=== PATIENT | female | born 1945 | race Two or more races ===

== ENCOUNTER 2020-12-03 17:47 | Emergency (ER) | payer MEDICARE ==
[~2020-12-03] VITALS: Ht 157.5 cm; Wt 68.0 kg
[2020-12-03] MEDS ORDERED: AMMONIA 0.33 ML INHALANT IN ONE (17:54)
[2020-12-03 18:35] LABS: Basophils # (auto) 0.1 10 ^3/uL (0-0.2); Basophils % (auto) 0.9 % (0.0-2.0); Eosinophils # (auto) 0.1 10 ^3/uL (0-0.8); Eosinophils % (auto) 2.4 % (0.0-7.0); Hematocrit 41.3 % (36.0-46.0); Hemoglobin 13.7 g/dL (12.2-16.2); Lymphocytes # (auto) 1.8 10 ^3/uL (0.4-5.4); Lymphocytes % (auto) 29.8 % (10.0-50.0); Mean Corpuscular Hemoglobin 29.9 pg (28.0-32.0); Mean Corpuscular Hgb Conc. 33.3 g/dL (32.0-36.0); Mean Corpuscular Volume 89.7 fL (80.0-100.0); Monocytes # (auto) 0.5 10 ^3/uL (0-1.3); Monocytes % (auto) 9.2 % (0.0-12.0); Neutrophils # (auto) 3.4 10 ^3/uL (1.6-8.6); Neutrophils % (auto) 57.7 % (37.0-80.0); Nucleated Red Blood Cells % 0.1 %; Red Cell Distribution Width 14.1 % (11.8-14.3); White Blood Cell 5.9 10^3/uL (4.4-10.8)
[2020-12-03 18:41] LABS: Albumin 3.2 g/dL (3.4-5.0); Anion Gap 4 (5-15); Blood Alcohol < 3.0 mg/dL (0-5); Blood Urea Nitrogen 24 mg/dL (7-18); Calcium 9.7 mg/dL (8.5-10.1); Carbon Dioxide 25 mmol/L (21-32); Chloride 113 mmol/L (98-107); Glucose 103 mg/dL (74-106); Magnesium 2.7 mg/dL (1.6-2.6); Potassium 4.1 mmol/L (3.5-5.1); Sodium 142 mmol/L (136-145)
[2020-12-03 18:46] LABS: Alanine Aminotransferase 30 U/L (13-56); Alkaline Phosphatase 65 U/L (45-117); Aspartate Aminotransferase 21 U/L (15-37); BUN/Creatinine Ratio 14.8; Bilirubin, Total 0.5 mg/dL (0.2-1.0); GFR African American 40 mL/min; GFR Non-African American 33 mL/min; Total Protein 6.7 g/dL (6.4-8.2)
[2020-12-03 21:22] LABS: Urine Bacteria NONE SEEN /hpf (None Seen); Urine WBC 7 /hpf (0 - 5)
[2020-12-03 21:26] LABS: Urine Blood Negative /uL (Negative)
[2020-12-03 21:29] LABS: Alcohol, Urine < 3.0 mg/dL (0-10); Amphetamine Screen, Urine NEGATIVE (NEGATIVE); Barbiturate Scree,Urine NEGATIVE (NEGATIVE); Benzodiazephine Screen, Urine NEGATIVE (NEGATIVE); Cannabinoid Screen, Urine POSITIVE (NEGATIVE); Cocaine Screen, Urine NEGATIVE (NEGATIVE); Opiate Scree,Urine NEGATIVE (NEGATIVE); Phencyclidine Screen, Urine NEGATIVE (NEGATIVE)
[2020-12-03] MEDS ORDERED: cefTRIAXone 1GM/50ML D5W 50 ML IV ONE (21:45)
[2020-12-03] MEDS ORDERED: SODIUM CHLORIDE 0.9% 1,000 ML IV ONE (21:45)
[2020-12-03 22:30] VITALS: BP 156/86
== END 2020-12-03 23:17 | disposition home or self-care (01) ==
LOC: ER 17:47 → EDBD 17:47 → ER 23:17
DX: R41.0 Disorientation, unspecified (principal); N39.0 Urinary tract infection, site not specified
CPT/HCPCS: 36415; 70450; 71045; 80053; 80307; 80320; 81001; 83735; 84484; 85025; 93005; 96365; 99285; J0696; J7030

== ENCOUNTER 2020-12-27 03:19 | Emergency (ER) | payer MEDICARE ==
[~2020-12-27] VITALS: Ht 167.6 cm; Wt 74.8 kg
[2020-12-27] MEDS ORDERED: cloNIDine HCL 0.1 MG TAB PO ONE (04:30)
[2020-12-27] MEDS ORDERED: HALOPERIDOL LACTATE 5 MG/ML INJ VIAL IM ONE (04:30)
[2020-12-27 07:52] VITALS: BP 149/79
[2021-01-04] MEDS ORDERED: LEVO750T8 PO (11:23)
[2021-01-04] MEDS ORDERED: MET25T PO (11:23)
== END 2020-12-27 09:03 | disposition home or self-care (01) ==
LOC: ER 03:19 → EDBD 03:19 → ER 09:03
DX: F03.90 Unspecified dementia, unspecified severity, without behavioral disturbance, psychotic disturbance, mood disturbance, and anxiety (principal); I10 Essential (primary) hypertension; R51.9 Headache, unspecified
CPT/HCPCS: 70450

== ENCOUNTER 2020-12-28 12:34 | Emergency (ER) | payer MEDICARE ==
[~2020-12-28] VITALS: Ht 157.5 cm; Wt 86.2 kg
[2020-12-28] MEDS ORDERED: SODIUM CHLORIDE 0.9% 1,000 ML IVB ONE (12:45)
[2020-12-28 13:41] LABS: Basophils # (auto) 0 10 ^3/uL (0-0.2); Basophils % (auto) 0.5 % (0.0-2.0); Eosinophils # (auto) 0 10 ^3/uL (0-0.8); Eosinophils % (auto) 0.1 % (0.0-7.0); Hematocrit 36.3 % (36.0-46.0); Hemoglobin 12.5 g/dL (12.2-16.2); Lymphocytes # (auto) 0.7 10 ^3/uL (0.4-5.4); Lymphocytes % (auto) 7.9 % (10.0-50.0); Mean Corpuscular Hemoglobin 30.6 pg (28.0-32.0); Mean Corpuscular Hgb Conc. 34.3 g/dL (32.0-36.0); Mean Corpuscular Volume 89.2 fL (80.0-100.0); Monocytes # (auto) 0.7 10 ^3/uL (0-1.3); Monocytes % (auto) 7.3 % (0.0-12.0); Neutrophils # (auto) 7.6 10 ^3/uL (1.6-8.6); Neutrophils % (auto) 84.2 % (37.0-80.0); Red Blood Cells 4.08 10^6/uL (4.0-5.20); White Blood Cell 9.1 10^3/uL (4.4-10.8)
[2020-12-28 14:07] LABS: Albumin 3.3 g/dL (3.4-5.0); Calcium 8.9 mg/dL (8.5-10.1); Potassium 4.4 mmol/L (3.5-5.1)
[2020-12-28 14:09] LABS: BUN/Creatinine Ratio 11.6
[2020-12-28 14:11] LABS: Total Protein 6.1 g/dL (6.4-8.2)
[2020-12-28 16:44] VITALS: BP 143/57
[2021-01-04] MEDS ORDERED: MET25T PO (11:23)
[2021-01-04] MEDS ORDERED: LEVO750T8 PO (11:23)
== END 2020-12-28 18:36 | disposition home or self-care (01) ==
LOC: EDBD 12:34 → ER 12:34
DX: R41.0 Disorientation, unspecified (principal); R55 Syncope and collapse; I10 Essential (primary) hypertension
CPT/HCPCS: 36415; 80053; 85025; 93005

== ENCOUNTER 2020-12-30 00:06 | Inpatient (IN) | payer MEDICARE ==
[~2020-12-30] VITALS: Ht 162.6 cm; Wt 73.7 kg
[2020-12-30 01:15] LABS: Basophils # (auto) 0.1 10 ^3/uL (0-0.2); Basophils % (auto) 1.1 % (0.0-2.0); Eosinophils # (auto) 0.1 10 ^3/uL (0-0.8); Eosinophils % (auto) 2.2 % (0.0-7.0); Hematocrit 36.7 % (36.0-46.0); Hemoglobin 12.6 g/dL (12.2-16.2); Lymphocytes # (auto) 1.8 10 ^3/uL (0.4-5.4); Lymphocytes % (auto) 29.2 % (10.0-50.0); Mean Corpuscular Hemoglobin 31.2 pg (28.0-32.0); Mean Corpuscular Hgb Conc. 34.4 g/dL (32.0-36.0); Mean Corpuscular Volume 90.6 fL (80.0-100.0); Monocytes # (auto) 0.6 10 ^3/uL (0-1.3); Monocytes % (auto) 8.9 % (0.0-12.0); Neutrophils # (auto) 3.6 10 ^3/uL (1.6-8.6); Neutrophils % (auto) 58.6 % (37.0-80.0); Nucleated Red Blood Cells % 0.1 %; Red Blood Cells 4.05 10^6/uL (4.0-5.20); White Blood Cell 6.2 10^3/uL (4.4-10.8)
[2020-12-30] MEDS ORDERED: CLON0.1T PO (01:29)
[2020-12-30 01:37] LABS: Albumin 3.3 g/dL (3.4-5.0); Calcium 8.8 mg/dL (8.5-10.1); Potassium 3.2 mmol/L (3.5-5.1)
[2020-12-30 01:45] LABS: Bilirubin, Total 0.7 mg/dL (0.2-1.0); Total Protein 6.7 g/dL (6.4-8.2)
[2020-12-30 02:00] LABS: Urine Bacteria FEW /hpf (None Seen); Urine Blood Negative /uL (Negative); Urine Specific Gravity 1.007 (1.001-1.035); Urine WBC 4 /hpf (0 - 5)
[2020-12-30] MEDS ORDERED: HEPARIN SODIUM (PORCINE) 5000 UNITS/ML 1ML VIAL IV ONE (02:00)
[2020-12-30] MEDS ORDERED: CLOPIDOGREL 300 MG TAB PO ONE (02:00)
[2020-12-30] MEDS ORDERED: HEPARIN DRIP/D5W 100UNITS/ML 250 ML IV SCH (02:00)
[2020-12-30] MEDS ORDERED: ASPirin 81 mg TAB PO ONE (02:00)
[2020-12-30 02:28] LABS: INR 0.98 (0.9-1.15); Partial Thromboplastin Time 23.9 sec (23.6-33.0)
[2020-12-30] MEDS ORDERED: NITROGLYCERIN 0.4 MG SL TAB SL PRN (06:45)
[2020-12-30] MEDS ORDERED: ONDANSETRON HCL 4 MG/2 ML VIAL IV PRN (06:45)
[2020-12-30] MEDS ORDERED: MORPHINE SULFATE 4 MG/ML SYR/VIAL IV PRN (06:45)
[2020-12-30] MEDS ORDERED: DOCUSATE SOD 100 MG CAP PO PRN (06:45)
[2020-12-30] MEDS ORDERED: hydrALAZINE HCL 20 MG/ML VL IV PRN (06:45)
[2020-12-30] MEDS ORDERED: HYDROcodone-ACET 5/325MG TAB PO PRN (06:45)
[2020-12-30] MEDS ORDERED: MORPHINE SULFATE INJECTION 2 MG/ML SYRG IV PRN (06:45)
[2020-12-30] MEDS ORDERED: ACETAMINOPHEN 325 MG TAB PO PRN (06:45)
[2020-12-30 07:14] LABS: Basophils # (auto) 0.1 10 ^3/uL (0-0.2); Basophils % (auto) 0.9 % (0.0-2.0); Eosinophils # (auto) 0.1 10 ^3/uL (0-0.8); Eosinophils % (auto) 2.1 % (0.0-7.0); Hematocrit 34.7 % (36.0-46.0); Lymphocytes # (auto) 1.6 10 ^3/uL (0.4-5.4); Lymphocytes % (auto) 24.6 % (10.0-50.0); Mean Corpuscular Hgb Conc. 34.5 g/dL (32.0-36.0); Mean Corpuscular Volume 89.9 fL (80.0-100.0); Monocytes # (auto) 0.5 10 ^3/uL (0-1.3); Monocytes % (auto) 8.5 % (0.0-12.0); Neutrophils # (auto) 4.1 10 ^3/uL (1.6-8.6); Neutrophils % (auto) 63.9 % (37.0-80.0); Red Blood Cells 3.86 10^6/uL (4.0-5.20); White Blood Cell 6.4 10^3/uL (4.4-10.8)
[2020-12-30] MEDS ORDERED: POTASSIUM CHL 20 Meq TABLET PO ONE (07:15)
[2020-12-30 07:29] LABS: BUN/Creatinine Ratio 14.1; Calcium 8.5 mg/dL (8.5-10.1); Potassium 3.3 mmol/L (3.5-5.1)
[2020-12-30 07:33] LABS: Bilirubin, Total 0.8 mg/dL (0.2-1.0); Total Protein 6.3 g/dL (6.4-8.2)
[2020-12-30] MEDS ORDERED: amLODIPine BESYLATE 5 MG TAB PO SCH (10:00)
[2020-12-30] MEDS ORDERED: METOPROLOL SUCCINATE XL 50 MG TAB PO ONE (12:45)
[2020-12-30] MEDS ORDERED: AZITHROMYCIN 500MG/ 250ML 250 ML IV ONE (12:45)
[2020-12-30] MEDS ORDERED: POTASSIUM CHL 20MEQ/100ML 100 ML IV ONE (12:45)
[2020-12-30] MEDS ORDERED: BENAZEPRIL HCL 10 MG TAB PO ONE (12:45)
[2020-12-30] MEDS ORDERED: cefTRIAXone 1GM/50ML D5W 50 ML IV ONE (12:45)
[2020-12-30] MEDS ORDERED: NIFEdipine ER 30 MG TAB PO ONE (12:45)
[2020-12-30] MEDS ORDERED: FAMOTIDINE (10MG/ML) 2ML VL IV ONE (13:00)
[2020-12-30] MEDS ORDERED: hydrALAZINE HCL 25 MG TAB PO SCH (14:00)
[2020-12-30] MEDS ORDERED: IPRATROPIUM BROM 0.5 MG/2.5ML INH SOL NEB SCH (14:00)
[2020-12-30 14:21] VITALS: BP 123/66
[2020-12-30] MEDS ORDERED: DONEPEZIL HYDROCHLORIDE 5 MG TAB PO SCH (22:00)
[2020-12-30] MEDS: ENOXAPARIN SOD 80 MG/0.8ML SYRINGE SC SCH (23:51)
[2020-12-30] MEDS: ATORVASTATIN 20 MG TAB PO SCH (23:51)
[2020-12-31 07:39] LABS: Basophils # (auto) 0.1 10 ^3/uL (0-0.2); Basophils % (auto) 0.9 % (0.0-2.0); Eosinophils # (auto) 0.1 10 ^3/uL (0-0.8); Eosinophils % (auto) 1.7 % (0.0-7.0); Hematocrit 35.5 % (36.0-46.0); Hemoglobin 12.3 g/dL (12.2-16.2); Lymphocytes # (auto) 1.2 10 ^3/uL (0.4-5.4); Lymphocytes % (auto) 21.6 % (10.0-50.0); Mean Corpuscular Hemoglobin 31.4 pg (28.0-32.0); Mean Corpuscular Hgb Conc. 34.7 g/dL (32.0-36.0); Mean Corpuscular Volume 90.3 fL (80.0-100.0); Monocytes # (auto) 0.5 10 ^3/uL (0-1.3); Monocytes % (auto) 8.5 % (0.0-12.0); Neutrophils # (auto) 3.8 10 ^3/uL (1.6-8.6); Neutrophils % (auto) 67.3 % (37.0-80.0); Nucleated Red Blood Cells % 0.1 %; Red Blood Cells 3.93 10^6/uL (4.0-5.20); Red Cell Distribution Width 14.3 % (11.8-14.3); White Blood Cell 5.6 10^3/uL (4.4-10.8)
[2020-12-31] MEDS: BENAZEPRIL HCL 10 MG TAB PO SCH (07:52)
[2020-12-31] MEDS: cefTRIAXone 1GM/50ML D5W 50 ML IV SCH (07:52)
[2020-12-31] MEDS: ASPirin 81 mg TAB PO SCH (07:52)
[2020-12-31] MEDS: NIFEdipine ER 30 MG TAB PO SCH (07:53)
[2020-12-31] MEDS: MEMANTINE HCL 5 MG TAB PO SCH (07:53)
[2020-12-31 07:54] LABS: INR 1.02 (0.9-1.15); Partial Thromboplastin Time 29.9 sec (23.6-33.0)
[2020-12-31] MEDS: METOPROLOL SUCCINATE XL 50 MG TAB PO SCH (07:54)
[2020-12-31] MEDS: ENOXAPARIN SOD 80 MG/0.8ML SYRINGE SC SCH (07:55)
[2020-12-31 08:05] LABS: Albumin 3.2 g/dL (3.4-5.0); BUN/Creatinine Ratio 13.2; Calcium 8.8 mg/dL (8.5-10.1); Magnesium 2.3 mg/dL (1.6-2.6); Uric Acid 3.2 mg/dL (2.6-6.0)
[2020-12-31 08:09] LABS: Bilirubin, Total 0.5 mg/dL (0.2-1.0); Phosphorus 2.7 mg/dL (2.5-4.90); Total Protein 6.7 g/dL (6.4-8.2)
[2020-12-31] MEDS: FAMOTIDINE (10MG/ML) 2ML VL IV SCH (08:09)
[2020-12-31] MEDS: AZITHROMYCIN 500MG/ 250ML 250 ML IV SCH (10:00)
[2020-12-31 19:55] VITALS: BP 107/56
[2020-12-31 21:13] VITALS: BP 107/56
[2020-12-31] MEDS ORDERED: OMEG100078 PO (21:32)
[2020-12-31] MEDS ORDERED: ALEN35TA18 PO (21:32)
[2020-12-31] MEDS ORDERED: ROSU20TA14 PO (21:32)
[2020-12-31] MEDS ORDERED: LOSA-39 PO (21:32)
[2020-12-31] MEDS ORDERED: DONE5TAB80 PO (21:32)
[2020-12-31] MEDS ORDERED: MEMA28CA15 PO (21:32)
[2020-12-31] MEDS ORDERED: EZET10TA22 PO (21:32)
[2020-12-31] MEDS ORDERED: CHOL20007 OR (21:32)
[2020-12-31] MEDS ORDERED: METO-158 PO (21:32)
[2020-12-31 22:00] VITALS: BP 107/56
[2020-12-31] MEDS: ATORVASTATIN 20 MG TAB PO SCH (22:34)
[2021-01-01 05:28] VITALS: BP 118/62
[2021-01-01 05:31] LABS: Basophils # (auto) 0.1 10 ^3/uL (0-0.2); Eosinophils # (auto) 0.1 10 ^3/uL (0-0.8); Eosinophils % (auto) 2.2 % (0.0-7.0); Hemoglobin 13.3 g/dL (12.2-16.2); Lymphocytes # (auto) 2.1 10 ^3/uL (0.4-5.4); Lymphocytes % (auto) 32.3 % (10.0-50.0); Mean Corpuscular Hemoglobin 30.2 pg (28.0-32.0); Mean Corpuscular Hgb Conc. 33.2 g/dL (32.0-36.0); Mean Corpuscular Volume 90.9 fL (80.0-100.0); Monocytes # (auto) 0.5 10 ^3/uL (0-1.3); Monocytes % (auto) 7.1 % (0.0-12.0); Neutrophils # (auto) 3.8 10 ^3/uL (1.6-8.6); Neutrophils % (auto) 57.4 % (37.0-80.0); Nucleated Red Blood Cells % 0.1 %; Red Cell Distribution Width 14.4 % (11.8-14.3); White Blood Cell 6.6 10^3/uL (4.4-10.8)
[2021-01-01 05:48] LABS: INR 0.99 (0.9-1.15); Partial Thromboplastin Time 24.3 sec (23.6-33.0)
[2021-01-01 06:03] LABS: Albumin 3.5 g/dL (3.4-5.0)
[2021-01-01 06:07] LABS: BUN/Creatinine Ratio 16.2; Magnesium 2.7 mg/dL (1.6-2.6)
[2021-01-01 06:09] LABS: Bilirubin, Total 0.7 mg/dL (0.2-1.0); Phosphorus 3.7 mg/dL (2.5-4.90); Total Protein 6.9 g/dL (6.4-8.2)
[2021-01-01 08:10] VITALS: BP 106/57
[2021-01-01] MEDS: cefTRIAXone 1GM/50ML D5W 50 ML IV SCH (08:10)
[2021-01-01 08:30] VITALS: BP 102/57
[2021-01-01] MEDS: AZITHROMYCIN 500MG/ 250ML 250 ML IV SCH (09:30)
[2021-01-01] MEDS: FAMOTIDINE (10MG/ML) 2ML VL IV SCH (09:30)
[2021-01-01] MEDS: ASPirin 81 mg TAB PO SCH (09:31)
[2021-01-01] MEDS: MEMANTINE HCL 5 MG TAB PO SCH (09:31)
[2021-01-01] MEDS: ENOXAPARIN SOD 40 MG/0.4 ML SYRINGE SC SCH (09:34)
[2021-01-01] MEDS: METOPROLOL SUCCINATE XL 50 MG TAB PO SCH (09:35)
[2021-01-01] MEDS: BENAZEPRIL HCL 10 MG TAB PO SCH (09:36)
[2021-01-01] MEDS: NIFEdipine ER 30 MG TAB PO SCH (09:36)
[2021-01-01 12:30] VITALS: BP 101/69
[2021-01-01] MEDS: SODIUM CHLORIDE 0.9% 1,000 ML IV SCH (14:00)
[2021-01-01 17:00] VITALS: BP_SYST 100; BP_SYST 101; BP_SYST 98; BP_DIAS 59; BP_DIAS 67
[2021-01-01 20:30] VITALS: BP 105/64
[2021-01-01] MEDS: ATORVASTATIN 20 MG TAB PO SCH (21:50)
[2021-01-02] VITALS (8 sets, daily range): BP systolic 118–135; BP diastolic 60–81
[2021-01-02 07:07] LABS: Potassium 4.2 mmol/L (3.5-5.1)
[2021-01-02 07:13] LABS: BUN/Creatinine Ratio 22.3; Calcium 8.4 mg/dL (8.5-10.1); Magnesium 2.5 mg/dL (1.6-2.6)
[2021-01-02] MEDS: SODIUM CHLORIDE 0.9% 1,000 ML IV SCH ×2 (08:06→23:05)
[2021-01-02] MEDS: cefTRIAXone 1GM/50ML D5W 50 ML IV SCH (08:07)
[2021-01-02] MEDS: ASPirin 81 mg TAB PO SCH (09:31)
[2021-01-02] MEDS: ENOXAPARIN SOD 40 MG/0.4 ML SYRINGE SC SCH (09:31)
[2021-01-02] MEDS: METOPROLOL SUCCINATE XL 50 MG TAB PO SCH (09:32)
[2021-01-02] MEDS: MEMANTINE HCL 5 MG TAB PO SCH (09:33)
[2021-01-02] MEDS: AZITHROMYCIN 500MG/ 250ML 250 ML IV SCH (09:34)
[2021-01-02] MEDS ORDERED: GADOTERATE MEG 10 MMOL/20ml INJ (0.5MMOL/ml) IV ONE (11:31)
[2021-01-02] MEDS: ATORVASTATIN 20 MG TAB PO SCH (21:52)
[2021-01-02] MEDS: METOPROLOL TARTRATE 25 MG TAB PO SCH (21:52)
[2021-01-03 05:00] VITALS: BP_SYST 121; BP_SYST 123; BP_DIAS 72; BP_DIAS 74
[2021-01-03 05:49] LABS: INR 0.94 (0.9-1.15); Partial Thromboplastin Time 24.9 sec (23.6-33.0)
[2021-01-03 06:03] LABS: Calcium 8.8 mg/dL (8.5-10.1); Potassium 4.4 mmol/L (3.5-5.1)
[2021-01-03 06:05] LABS: BUN/Creatinine Ratio 26.1
[2021-01-03 09:00] VITALS: BP 136/75
[2021-01-03] MEDS: cefTRIAXone 1GM/50ML D5W 50 ML IV SCH (09:04)
[2021-01-03] MEDS: ASPirin 81 mg TAB PO SCH (09:04)
[2021-01-03] MEDS: METOPROLOL TARTRATE 25 MG TAB PO SCH ×2 (09:05→22:03)
[2021-01-03] MEDS: ENOXAPARIN SOD 40 MG/0.4 ML SYRINGE SC SCH (09:05)
[2021-01-03] MEDS: MEMANTINE HCL 5 MG TAB PO SCH (09:05)
[2021-01-03] MEDS: AZITHROMYCIN 500MG/ 250ML 250 ML IV SCH (09:52)
[2021-01-03] MEDS: SODIUM CHLORIDE 0.9% 1,000 ML IV SCH (15:45)
[2021-01-03 22:00] VITALS: BP 139/76
[2021-01-03] MEDS: ATORVASTATIN 20 MG TAB PO SCH (22:02)
[2021-01-04 05:46] LABS: BUN/Creatinine Ratio 28.3; Calcium 8.6 mg/dL (8.5-10.1); Potassium 4.4 mmol/L (3.5-5.1)
[2021-01-04 08:54] VITALS: BP 117/71
[2021-01-04] MEDS: SODIUM CHLORIDE 0.9% 1,000 ML IV SCH (09:49)
[2021-01-04] MEDS: cefTRIAXone 1GM/50ML D5W 50 ML IV SCH (09:49)
[2021-01-04] MEDS: ASPirin 81 mg TAB PO SCH (09:51)
[2021-01-04] MEDS: ENOXAPARIN SOD 40 MG/0.4 ML SYRINGE SC SCH (09:51)
[2021-01-04] MEDS: MEMANTINE HCL 5 MG TAB PO SCH (09:52)
[2021-01-04] MEDS: METOPROLOL TARTRATE 25 MG TAB PO SCH (09:54)
[2021-01-04] MEDS: AZITHROMYCIN 500MG/ 250ML 250 ML IV SCH (11:21)
[2021-01-04] MEDS ORDERED: LEVO750T8 PO (11:23)
[2021-01-04] MEDS ORDERED: MET25T PO (11:23)
[2021-01-06] MEDS ORDERED: ALENDRONATE SODIUM 10 MG TAB PO SCH (13:00)
== END 2021-01-04 14:15 | disposition home health service (06) | DRG 193 ==
LOC: ER 00:06 → TELE 06:31 → TELE-CENTR 12-31 20:55 → CENTRAL 01-03 10:24
PROVIDERS: ADMIT Nurse Practitioner Family; ATTEND Internal Medicine
DX: J15.9 Unspecified bacterial pneumonia (principal); I21.A1 Myocardial infarction type 2; G93.41 Metabolic encephalopathy; N17.0 Acute kidney failure with tubular necrosis; J98.11 Atelectasis; I16.1 Hypertensive emergency; F02.80 Dementia in other diseases classified elsewhere, unspecified severity, without behavioral disturbance, psychotic disturbance, mood disturbance, and anxiety; E87.6 Hypokalemia; G30.9 Alzheimer's disease, unspecified; E78.5 Hyperlipidemia, unspecified; I12.9 Hypertensive chronic kidney disease with stage 1 through stage 4 chronic kidney disease, or unspecified chronic kidney disease; M81.0 Age-related osteoporosis without current pathological fracture; Z20.822 Contact with and (suspected) exposure to COVID-19; N18.9 Chronic kidney disease, unspecified; Z90.710 Acquired absence of both cervix and uterus
CPT/HCPCS: 36415; 70450; 70553; 71045; 71250; 80048; 80053; 80061; 81001; 82306; 83036; 83735; 83880; 84100; 84443; 84484; 84550; 85025; 85610; 85730; 87040; 87086; 87426; 93005; 93306; 94640; 96361; 96365; 96375; G0378; J0696; J3480; J3490